=== PATIENT | female | born 1980 | race Caucasian/White ===

== ENCOUNTER 2021-05-11 16:13 | Emergency (ER) | payer OTHER, SELFPAY ==
--- NOTE | ~2021-05-11 | CT_ITS ---
EXAMINATION: CT abdomen pelvis w con DATE: 05/11/2021 17:33 INDICATION: Right upper quadrant abdominal pain with one month of nausea TECHNIQUE: Computed tomography (CT) of the abdomen and pelvis was performed with 100 mL Omnipaque-350 intravenous contrast. Automated exposure control and iterative reconstruction technique were employe d. The dose-length product was 343.80 mGy-cm. COMPARISON: None FINDINGS: Lung bases are clear. Heart size is normal. No pericardial or pleural effusion. 1.1 cm low-attenuatio n lesion in the right hepatic lobe near the confluence of the right hepatic vein and inferior vena ca va. Gallbladder, spleen, pancreas, bilateral adrenal glands and kidneys are normal. There are a few d iverticula along the sigmoid colon without adjacent inflammatory change to suggest diverticulitis. Sm all bowel and appendix are normal. Bladder, anteverted uterus and bilateral adnexa are normal. No brady e intraperitoneal gas or fluid. No pathologically enlarged abdominal or pelvic lymphadenopathy. Bones are unremarkable. IMPRESSION: 1. No acute intra-abdominal/pelvic process. 2. 1.1 cm hypoenhancing hepatic lesion which in the absence of known malignancy or liver disease is m ost likely benign with differential including focal nodular hyperplasia, hemangioma, hepatic adenoma and focal steatosis. Consider follow-up pre and postcontrast MRI for more definitive determination. Reviewed, dictated and finalized at location A. KER IMPRESSION: 1. No acute intra-abdominal/pelvic process. 2. 1.1 cm hypoenhancing hepatic lesion which in the absence of known malignancy or liver disease is most likely benign with differential including focal nodul ar hyperplasia, hemangioma, hepatic adenoma and focal steatosis. Consider follo w-up pre and postcontrast MRI for more definitive determination.
[2021-05-11 16:27] VITALS: BP 155/107; PULSE 78; RESP 16; TEMP 36.2; O2SAT 100
--- NOTE | 2021-05-11 16:47 | ED.ABDPAIN ---
HPI - Abdominal Pain General Chief Complaint: Abdominal Pain Stated Complaint: under rib pain, hot flashes Source: patient Mode of arrival: ambulatory Limitations: no limitations History of Present Illness HPI narrative: this is a 41-year-old female with chief complaint of abdominal pain in the epigastric area and localizing to the left lower quadrant with no nausea or vomiting patient says that she feels bloated with no dysuria no hematuria no flank pain no fever chills patient states that she has been having bouts of constipation, no diarrhea no chest pain or shortness of breath. Patient states that she notified her primary care physician and was advised to take [id number] PPIs as well as Tums, patient states that she gets minimal relief from that regimen. MD elicited complaint: abdominal pain Pertinent past history: none and constipation Onset (ago): day(s) Pain Consistency: intermittent Location: epigastric and LLQ Severity: mild Pain scale (0-10): 3 Quality: aching and fullness Related Data Home Medications Medication Instructions Recorded Confirmed amitriptyline 25 mg PO DAILY 05/11/21 05/11/21 Allergies Allergy/AdvReac Type Severity Reaction Status Date / Time No Known Allergies Allergy Verified 05/11/21 16:33 Review of Systems Review of Systems: All systems reviewed & are unremarkable except as noted in HPI and below PMFSH Past Medical History Medical History Irregular bleeding Family History Family History Other Hypertension Social History Social History Smoking status: Never smoker Alcohol intake: current Alcohol use details: socially Substance use: never Substance use type: does not use Additional occupation/education comments: [employer] Gender identity (if verbalized by the patient): Female Exam Const: General: no acute distress Orientation/consciousness: patient oriented x3 HENMT: Head: normal to inspection Eyes: Conjunctivae: conjunctivae normal Pupils: Equal, round and reactive pupils present Neck: Neck: normal visual inspection Chest: Chest palpation & inspection: normal inspection of the chest Resp: Effort & Inspection: normal respiratory effort Cardio: Rate: regular rate Rhythm: regular rhythm GI: GI Palp: Yes Soft to palpation and Yes Tenderness to palpation present (GI) ( Epigastric and left lower quadrant) Percussion: Yes normal to percussion : General: Yes no CVA tenderness Urinary Catheter: Urinary Catheter: patent and draining Back/Spine/Pelvis: Back: no CVA tenderness Skin: General skin exam: normal color Rashes: no rashes Neuro: General: patient oriented x3, moves all extremities and no meningeal signs Extrem: General: normal to inspection and no pedal edema Psych: Mental Status: mental status grossly normal Affect: normal affect Course Course Emergency Course: patient received GI cocktail, IV was placed and CT scan of abdomen pelvis performed with contrast and reviewed with patient as well as labs. CT scan reviewed with patient which showed a lesion on the liver that is likely benign but advised to see primary care physician to obtain an MRI for better evaluation. Vital Signs Vital signs: Vital Signs Temperature 36.2 C L 05/11/21 16:27 Pulse Rate 78 05/11/21 16:27 Respiratory Rate 16 05/11/21 16:27 Blood Pressure 155/107 H 05/11/21 16:27 Pulse Oximetry 100 05/11/21 16:27 Temperature 36.2 C L 05/11/21 16:27 Pulse Rate 78 05/11/21 16:27 Respiratory Rate 16 05/11/21 16:27 Blood Pressure 155/107 H 05/11/21 16:27 Pulse Oximetry 100 05/11/21 16:27 MDM - Abdominal Pain Lab Data Result diagrams: 05/11/21 16:52 05/11/21 16:52 Labs: Lab Results 05/11/21 05/11/21 05/11/21 Range/Units 16:
[2021-05-11] MEDS: MAG HYDROX/ALUMINUM HYD/SIMETH 30 ML, PHENobarb/HYOSCY/ATROPINE/SCOP 32.4 MG, LIDOCAINE... PO (16:53)
[2021-05-11 16:56] LABS: Basophils Absolute Auto 0.03 K/mm3 (0.00-0.10); Basophils Percent Auto 0.4 % (0.0-1.0); Eosinophils Absolute Auto 0.05 K/mm3 (0.02-0.50); Eosinophils Percent Auto 0.7 % (1.0-6.0); Hemoglobin 13.2 g/dL (12.0-15.0); Immature Granulocyte Absolute 0.02 K/mm3 (0.00-0.00); Immature Granulocyte Percent A 0.3 % (0.0-0.0); Lymphocytes Absolute Auto 2.19 K/mm3 (1.10-4.50); Mean Corpuscular HGB Conc 32.2 g/dL (32.0-36.0); Mean Corpuscular Hemoglobin 27.4 pg (27.0-31.0); Mean Corpuscular Volume 85.2 fL (78.0-102.0); Monocytes Absolute Auto 0.43 K/mm3 (0.10-0.90); Monocytes Percent Auto 5.9 % (2.0-11.0); Neutrophils Absolute Auto 4.6 K/mm3 (1.7-7.2); Neutrophils Percent Auto 62.7 % (50.0-70.0); Platelet Count Result 324 K/mm3 (150-420); Red Blood Count 4.81 M/mm3 (4.20-5.40); Red Cell Distribution Width 12.4 % (11.6-14.4); White Blood Count 7.3 K/mm3 (4.8-10.8)
[2021-05-11 17:04] LABS: Add Urine Microscopic? YES; Appearance Urine Clear (Clear); Bilirubin Urine Negative (Negative); Blood Urine 2+ (Negative); Color Urine Yellow (Yellow); Glucose Urine UA Negative (Negative); Ketones Urine Negative (Negative); Leukocyte Esterase Ur Trace (Negative); Nitrate Urine Negative (Negative); Protein Urine Negative (Negative); Specific Grav Ur 1.015 (1.010-1.020); Urobilinogen Urine 0.2 mg/dL (0.2-1.0)
[2021-05-11 17:06] LABS: Pregnancy On Board Control Positive; Urine Pregnancy Test Negative
[2021-05-11 17:10] LABS: Alanine Aminotransferase 19 U/L (14-59); Albumin Level 3.8 g/dL (3.4-5.0); Alkaline Phosphatase 55 U/L (46-116); Anion Gap 10 mmol/L (8-16); Aspartate Amino Transferase 19 U/L (15-37); Bilirubin,Total 0.3 mg/dL (0.00-1.00); Blood Urea Nitrogen 13 mg/dL (7-18); Calcium 9.4 mg/dL (8.5-10.1); Carbon Dioxide 27 mmol/L (21-32); Chloride 102 mmol/L (98-108); Estimated Glomerular Filt Rate > 60; Glucose 96 mg/dL (70-99); Lipase 112 U/L (73-393); Osmolality Calculated 288 mOsm/kg (285-295); Potassium 3.9 mmol/L (3.5-5.1); Sodium 139 mmol/L (136-145); Total Protein 7.5 g/dL (6.4-8.2)
[2021-05-11 17:11] LABS: Bacteria Urine Trace /hpf; Squamous Epithelial Cell Urine Few /hpf (Few); WBC Urine 0-3 /hpf (0-3)
[2021-05-11 18:25] VITALS: BP 129/104; PULSE 68; RESP 16; TEMP 36.8; O2SAT 98
== END 2021-05-11 18:35 | disposition home or self-care (01) ==
PROVIDERS: Emergency Provider Emergency Medicine; PCP Nurse Practitioner Adult Health
DX: R10.13 Epigastric pain (principal); K21.9 Gastro-esophageal reflux disease without esophagitis
CPT/HCPCS: 36415; 74177; 80053; 81001; 81025; 83690; 85025; 99284; A9270; Q9967

== ENCOUNTER 2021-11-01 08:38 | Emergency (ER) | payer OTHER, SELFPAY ==
--- NOTE | ~2021-11-01 | XR_ITS ---
EXAMINATION: XR knee LT min 4V DATE: 11/01/2021 09:17 INDICATION: Left knee injury and pain. TECHNIQUE: 4 views of left knee were obtained. COMPARISON: None. FINDINGS: Bone alignment is normal. No fracture. Joint spaces are well maintained. There is no knee j oint effusion. IMPRESSION: 1. Normal left knee. Reviewed, dictated and finalized at location A. IMPRESSION: 1. Normal left knee.
--- NOTE | ~2021-11-01 | XR_ITS ---
EXAMINATION: XR ankle LT min 3V DATE: 11/01/2021 09:16 INDICATION: Left ankle pain and swelling. Fall. TECHNIQUE: 4 views of left ankle were obtained. COMPARISON: None. FINDINGS: Bone alignment is normal. No fracture. Joint spaces are well maintained. There is ankle sof t tissue swelling. IMPRESSION: 1. No fracture. Reviewed, dictated and finalized at location A. IMPRESSION: 1. No fracture.
[2021-11-01 08:43] VITALS: BP 134/81; PULSE 106; RESP 15; TEMP 36.6; O2SAT 100
--- NOTE | 2021-11-01 08:55 | ED.LOWEXIN ---
HPI - Extremity Injury (Lower) General Chief Complaint: Extremity Injury, Lower Stated Complaint: fell off porch, left ankle injury Time Seen by Provider: 11/01/21 08:55 Source: patient Mode of arrival: ambulatory Limitations: no limitations History of Present Illness HPI Narrative: Patient is a 41-year-old female presenting to the emergency department for evaluation of a left ankle pain and swelling. Patient states that she missed stepped while walking in her garage, causing her to fall distance of approximately 6 to 8 inches and landed on her left foot. Patient heard a popping sensation with immediate pain and swelling in her left ankle. Patient has not been able to ambulate or bear weight on the extremity secondary to pain. She reports a tingling sensation but denies any significant numbness. She has full sensation in her toes and has been able to move her toes. She reports falling onto her knee but denies any knee pain, swelling, abrasion, or bruising. Patient denies head trauma or injury. No upper extremity injury or pain. No back pain. Related Data Home Medications Medication Instructions Recorded Confirmed amitriptyline 25 mg tablet 25 mg PO DAILY 05/11/21 09/13/21 Allergies Allergy/AdvReac Type Severity Reaction Status Date / Time No Known Allergies Allergy Verified 09/13/21 08:59 Review of Systems Review of Systems: CONSTITUTIONAL: Denies fever CARDIOVASCULAR: Denies chest pain RESPIRATORY: Denies cough or dyspnea. GASTROINTESTINAL: Denies abdominal pain SKIN: Denies rash MUSCULOSKELETAL: Denies back pain, reports left ankle pain NEUROLOGIC: Denies headache PMFSH Past Medical History Medical History Irregular bleeding Family History Family History Other Hypertension Social History Social History Smoking status: Never smoker Alcohol intake: current Alcohol use details: socially Substance use: never Substance use type: does not use Additional occupation/education comments: [employer] Gender identity (if verbalized by the patient): Female Exam Narrative: Nursing note and vitals reviewed. CONSTITUTIONAL: The patient appears well-developed and well-nourished. No distress. HEAD: Normocephalic and atraumatic. EYES: PERRL, EOMI, normal conjunctiva, anicteric EARS: External ears clear bilaterally MOUTH: OP clear, no erythema, exudates NECK: midline trachea, supple, FROM. CARDIOVASCULAR: Normal rate, regular rhythm, normal heart sounds and intact distal pulses. No murmurs, rubs, gallops. PULMONARY: Effort normal and breath sounds normal. No respiratory distress. The patient has no wheezes, rales, ronchi. ABDOMINAL: Soft. Nontender, nondistended. No palpable masses EXTREMITIES:: moving all extremities symmetrically. -RUE: No deformity. Normal ROM at shoulder, elbow, wrist, and hand. Sensation intact M/U/R. Pulse 2+. -LUE: No deformity. Normal ROM at shoulder, elbow, wrist, and hand., Sensation intact M/U/R. Pulse 2+ -RLE: No deformity. Normal ROM at hip, knee, ankle. Sensation intact distally. -LLE: Normal ROM at hip, knee. There is deformity at the left ankle with lateral malleoli are edema, tenderness. DP pulse 2+. Strength limited secondary to pain. Sensation intact distally. NEUROLOGY: The patient is alert and oriented to person, place, and time. CN II-XII Course Vital Signs Vital signs: Vital Signs Temperature 36.6 C 11/01/21 08:43 Pulse Rate 106 H 11/01/21 08:43 Respiratory Rate 15 11/01/21 08:43 Blood Pressure 134/81 11/01/21 08:43 Pulse Oximetry 100 11/01/21 08:43 Temperature 36.6 C 11/01/21 08:43 Pulse Rate 106 H 11/01/21 08:43 Respiratory Rate 15 11/01/21 08:43 Blood Pressure 134/81 11/01/21 08:43 Pulse Oximetry 100 11/01/21 08:43 MDM - Extremity Injury (Lower)
[2021-11-01 09:56] VITALS: BP 129/88; PULSE 90; RESP 16
== END 2021-11-01 09:58 | disposition home or self-care (01) ==
PROVIDERS: Emergency Provider Emergency Medicine; PCP Nurse Practitioner Adult Health
DX: S93.402A Sprain of unspecified ligament of left ankle, initial encounter (principal); S96.912A Strain of unspecified muscle and tendon at ankle and foot level, left foot, initial encounter; W10.9XXA Fall (on) (from) unspecified stairs and steps, initial encounter
CPT/HCPCS: 73564; 73610; 99284

== ENCOUNTER 2023-04-30 08:40 | Emergency (ER) | payer OTHER, SELFPAY ==
[2023-04-30 08:45] VITALS: BP 129/89; PULSE 89; RESP 16; TEMP 36.9; O2SAT 99
[2023-04-30] MEDS: TETANUS,DIPHTHERIA,AC PERTUSSIS ADULT (0.5 ML) BOOSTRIX (09:10)
--- NOTE | 2023-04-30 09:50 | ED.WOUNDLAC ---
HPI - Wound/Laceration General Chief Complaint: Wound/Laceration Stated Complaint: R index finger lac Time Seen by Provider: 04/30/23 09:01 Source: patient Mode of arrival: ambulatory Limitations: no limitations History of Present Illness HPI narrative: Patient is 43 y/o female who presents to the ED with c/o laceration to her R 2nd knuckle. Patient reports she was cleaning a glass drinking container this morning when the glass broke and she sustained a laceration to her right 2nd digit MCP joint. No active bleeding upon my evaluation. No other injuries. No numbness or tingling. Tetanus unknown. Related Data Allergies Allergy/AdvReac Type Severity Reaction Status Date / Time No Known Allergies Allergy Verified 04/30/23 09:12 Review of Systems Review of Systems: CONSTITUTIONAL: Denies fever, chills, or sweats. SKIN: See HPI. NEUROLOGIC: Denies headache, dizziness, numbness, or weakness. All systems reviewed & are unremarkable except as noted in HPI and below PMFSH Past Medical History Medical History Irregular bleeding Family History Family History Other Hypertension Social History Social History Smoking status: Never smoker Alcohol intake: current Alcohol use details: socially Substance use: never Substance use type: does not use Lack of Transportation: No Lack of Food: Never True Current Housing: I Have Housing Concerned About Future Housing: No Difficulty Paying Gas/Electric Bills: No Difficulty Paying for Meds: No Currently Unemployed: No Education: Associate Degree Difficulty w/ Childcare or Family Care: No Living arrangements: with family Occupation/Education: occupation Additional occupation/education comments: [employer] Gender identity (if verbalized by the patient): Female Exam Narrative: GENERAL: Well appearing, well-nourished, non-toxic, in no acute distress. HEAD: Normocephalic, atraumatic. RESPIRATORY: Airway patent, respirations nonlabored. CARDIOVASCULAR: Regular rate and rhythm without murmurs, rubs, or gallops. Radial pulses easily palpable MUSCULOSKELETAL: Moves all extremities. No gross deformities. No significant tenderness with range of motion of fingers. Sensation intact. Capillary refill intact. SKIN: Warm, dry, normal color. Approx 2 cm C-shaped laceration over R 2nd MCP joint. No significant active bleeding. Wound edges approximate well. NEURO: A&O X3. Speech clear. PSYCHIATRIC: Appropriate mood and affect. Normal interaction. Course Vital Signs Vital signs: Vital Signs Temperature 98.5 F 04/30/23 08:45 Pulse Rate 89 04/30/23 08:45 Respiratory Rate 16 04/30/23 08:45 Blood Pressure 129/89 04/30/23 08:45 Pulse Oximetry 99 04/30/23 08:45 Oxygen Delivery Room Air 04/30/23 08:45 Temperature 98.5 F 04/30/23 08:45 Pulse Rate 89 04/30/23 08:45 Respiratory Rate 16 04/30/23 08:45 Blood Pressure 129/89 04/30/23 08:45 Pulse Oximetry 99 04/30/23 08:45 Oxygen Delivery Room Air 04/30/23 08:45 Procedures Laceration Laceration 1: Date: 04/30/23 Time: 10:30 Site: hand Side (If applicable): right Size (cm): 2 Description: flap, irregular and clean Depth: simple, single layer Local Anesthetic: lidocaine 1% Amount of anesthesia used (mL): 5 Pre-repair: wound explored and irrigated ====== Skin Level ====== Skin layer closed with: nylon Size (cm): 5-0 Number of sutures: 6 Technique: simple, interrupted ====== Subcutaneous Layer ====== ====== Muscle Layer ====== ====== Tendon Layer ====== MDM - Wound/Laceration MDM Narrative Medical decision making narrative: Patient neurovascularly intact. No evidence
[2023-04-30 10:50] VITALS: BP 127/85; PULSE 80; RESP 14; O2SAT 100
== END 2023-04-30 10:51 | disposition home or self-care (01) ==
PROVIDERS: Emergency Provider Physician Assistant; PCP Emergency Medicine
DX: S61.411A Laceration without foreign body of right hand, initial encounter (principal); Z23 Encounter for immunization; W25.XXXA Contact with sharp glass, initial encounter; Y93.G1 Activity, food preparation and clean up
CPT/HCPCS: 12001; 90471; 90715; 99282

== ENCOUNTER 2023-12-27 07:32 | Outpatient (CLI) | payer OTHER, SELFPAY ==
[2023-12-27 07:46] LABS: Hematocrit 42.2 % (37.0-47.0); Hemoglobin 13.5 g/dL (12.0-15.0); Mean Corpuscular Hemoglobin 28.2 pg (26-34); Mean Corpuscular Volume 88.1 fl (80-100); Mean Platelet Volume 11.1 fl (7.4-10.4); Platelet Count Result 257 k/mm3 (150-375); Red Blood Count 4.79 M/mm3 (4.2-5.4); Red Cell Distribution Width 13.1 % (11.5-14.5); White Blood Count 5.7 K/mm3 (4.5-10.0)
[2023-12-27 09:31] LABS: Alanine Aminotransferase 9 U/L (6-35); Alkaline Phosphatase 64 U/L (38-126); Anion Gap 8 mmol/L (4-12); Aspartate Amino Transferase 20 U/L (14-36); Bilirubin,Total 0.5 mg/dL (0.2-1.3); Blood Urea Nitrogen 12 mg/dL (7-17); Calcium 9.4 mg/dL (8.4-10.2); Carbon Dioxide 29 mmol/L (22-30); Chloride 104 mmol/L (98-107); Cholesterol 225 mg/dL (0-200); Estimated Glomerular Filt Rate > 60; Glucose 92 mg/dL (65-110); HDL Direct 65 mg/dL; Lipase 99 U/L (23-300); Magnesium 1.8 mg/dL (1.6-2.3); Potassium 4.3 mmol/L (3.4-5.0); Sodium 141 mmol/L (137-145); Triglycerides 96 mg/dL (<150)
[2023-12-27 09:43] LABS: LDL Cholesterol Direct 124 mg/dL
== END 2023-12-27 07:33 | disposition home or self-care (01) ==
LOC: ANHLAB 07:33
PROVIDERS: PCP Nurse Practitioner Adult Health; Visit Provider Nurse Practitioner Adult Health
DX: R10.13 Epigastric pain (principal); Z13.9 Encounter for screening, unspecified
CPT/HCPCS: 36415; 80053; 80061; 82607; 83690; 83735; 84443; 85027

== ENCOUNTER 2024-10-05 09:16 | Emergency (ER) | payer OTHER, SELFPAY ==
--- NOTE | ~2024-10-05 | XR_ITS ---
EXAMINATION: XR ankle RT min 3V DATE: 10/05/2024 09:36 INDICATION: Lateral right ankle pain and swelling post fall down stairs TECHNIQUE: Anteroposterior, oblique, mortise, and lateral views of the right ankle were obtained. COMPARISON: None. FINDINGS: Alignment is normal. No fracture. Joint spaces are well maintained. No ankle joint effusion. Soft t issue swelling overlying the lateral malleolus. IMPRESSION: 1. No osseous abnormality Reviewed, dictated and finalized at location A. IMPRESSION: 1. No osseous abnormality
[2024-10-05 09:26] VITALS: BP 135/82; PULSE 75; RESP 14; TEMP 36.6; O2SAT 100
--- OUTSIDE RECORDS SUMMARY | 2024-10-05 09:29 | XMS_ITS | Patient Health Record ---
Author Organization [facility] Address [address] [place], [place] [id number] Care Team Providers Care Development Advisor Name Role Phone LISA BARRERA Unavailable [phone] Alena Dougherty Unavailable Unavailable Reason For Referral No Information Plan Of Treatment No Information Insurance Providers Payer Name Payer Address Payer Phone Subscriber Number Group Number Insured Name Patient Relationship to Insured Coverage Start Date Coverage End Date [employer] [address] [place], [place] [id number] [phone] [id number] SERGE ESCAMILLA Self - patient is the insured
--- OUTSIDE RECORDS SUMMARY | 2024-10-05 09:29 | XMS_ITS | Clinical Summary ---
Author Organization [facility] Address [address] [place] [id number] Care Team Providers Care Lockstitch Sleeve Setter Name Role Phone Unavailable Primary Care Provider Unavailabl e Social History Tobacco Use Types Packs/Day Years Used Date Smoking Tobacco: Never Assessed Comments Unknown Sex and Gender Information Value Date Recorded Sex Assigned at Not on file Legal Sex Female 8:36 PM CDT Gender Identity Not on file Sexual Orientation Not on file Plan of Treatment Health Maintenance Due Date Last Done Comments Cervical Cancer Screening Pa p Smear (Age 30 to 64) Every 3 Years 1982 Annual Physical 1985 Hepatitis C 02/12/2000 DTaP, Tdap and Td Vaccines ( 1 - Tdap) 2001 Hepatitis B Vaccines (1 of 3 - 19+ 3-dose series) 2001 HPV Vaccines (1 - 3-dose SCD M series) 2009 Cervical Cancer Screening Pa p with HPV Testing (Age 30 to 64) Every 5 Years 02/12/2012 Cervical Cancer Screening with HPV 02/12/2012 Mammogram Screening 2022 COVID-19 Vaccine ( - 2023-2 5 season) 2023 Meningococcal B Vaccine Aged Out No l onger eligible based on patient's age to complete this topic Meningococcal Vaccine Aged Out No rebekah marie eligible based on patient's age to complete this topic Pneumococcal Vaccine: Pediat rics (0 to 5 Years) and At-Risk Patients (6 to 49 Years) Aged Out No longer eligible b ased on patient's age to complete this topic RSV Immunizations Under 20 Months Aged Out No longer eligible based on patient's age to complete this topic
--- OUTSIDE RECORDS SUMMARY | 2024-10-05 09:29 | XMS_ITS | Clinical Summary ---
Author Organization [facility] Address [address] [place] [address] Care Team Providers Care Word Processor Technician Name Role Phone Jessica Turner MD Primary Care Provider [phone] Source Comments [facility],non-owned Affiliates and Associated Physician Practices is amultiple site organization consisting of ambulatory clinics and hospital sitesin [place], [place], [place] and [place]. This disclosure is being madepursuant to the Care Everywhere program and may not contain all information available regarding this patient. Last updated 17.[facility] Allergies No known active allergies Medications * Be aware that medications may not be up to date on this document. Alwaysverify current medications with the patient. vitamin-ferrous fumarate-folic acid (NATALCARE PLUS) 27-1 MG tablet Take 1 Tab by mouth once daily. Active ibuprofen (MOTRIN) 600 MG tablet Take 1 Tab by mouth every 6 hours as needed for Pain 45 Tab 0 11/21/2015 Active Immunizations Immunization Administration Dates Next Due MMR 11/21/2015 Rho D Immune Globulin 11/21/2015,10/28/2013 TDAP (7yrs+) 10/27/2013 Family History Medical History Relation Name Comments Tuberculosis Maternal Grandmother Hypertension Mother Cancer Other fob Stroke Paternal Grandfather Relation Name Status Comments Maternal Grandmother Mother Other Paternal Grandfather Social History Tobacco Use Types Packs/Day Years Used Date Smoking Tobacco: Never Alcohol Use Standard Drinks/Week Comments No 0 (1 standard drink = 0.6 oz pur e alcohol) Comments No Sex and Gender Information Value Date Recorded Sex Assigned at Not on file Legal Sex Female 1:06 PM CDT Gender Identity Not on file Sexual Orientation Not on file Last Filed Vital Signs Vital Sign Reading Time Taken Comments Blood Pressure 117/81 11/21/2015 12:04 PM CDT Pulse 83 11/20/2015 3:30 AM CDT Temperature 36.7 C (98.1 F) 11/21/2015 12:04 PM CDT Respiratory Rate 18 11/21/2015 12:04 PM CDT Oxygen Saturation 97% 11/20/2015 3:12 AM CDT Inhaled Oxygen Concentration - - Weight 79.4 kg (175 lb) 11/20/2015 12:29 AM CDT Height 170.2 cm (5' 7) 11/20/2015 12:29 AM CDT Body Mass Index 27.41 11/20/2015 12:29 AM CDT Plan of Treatment Health Maintenance Due Date Last Done Comments LIPID TESTING 1982 MAMMOGRAM 1982 HIV SCREENING 1997 HEPATITIS C SCREENING 02/07/2000 HEPATITIS B VACCINE (1 of 3 - 19+ 3-dose series) 2001 HPV VACCINE (1 - 3-dose SCDM series) 2009 DTAP/TDAP/TD VACCINES (2 - T d or Tdap) 10/28/2023 10/27/2013 COVID-19 VACCINE (1 - 2023-2 5 season) 2023 DEPRESSION SCREENING 03/04/2024 INFLUENZA VACCINE (#1) 2024 ZOSTER VACCINE (1 of 2) 02/12/2032 HIB VACCINE Aged Out No longer eligi ble based on patient's age to complete this topic MENINGOCOCCAL (Group B) VACC INE SHARED DECISION-MAKING Aged Out No longer eligibl e based on patient's age to complete this topic MENINGOCOCCAL GROUPS A/C/Y/W VACCINE Aged Out No longer eligible b ased on patient's age to complete this topic PNEUMOCOCCAL VACCINE Aged Out No long er eligible based on patient's age to complete this topic Insurance ANTHEM Advance Directives * Full Code (Latest Code Status on File) Date Activated Date Inactivated Comments 11/20/2015 1:07 AM 11/21/2015 2:20 PM * Full Code Date Activated Date Inactivated Comments 11/20/2015 12:22 AM 11/20/2015 1:07 AM * Full Code Date Activated Date Inactivated Comments 10/26/2013 8:00 PM 10/27/2013 7:09 PM Care Teams Word Processor Technician Relationship Specialty Start Date End Date Carmencita-Jsesica Gomez MD PCP - General Family Medicine 10/26/13
--- OUTSIDE RECORDS SUMMARY | 2024-10-05 09:29 | XMS_ITS | Clinical Summary ---
Author Organization [facility] Address [address] [place] [address] Phone Care Team Providers Care Executive Director Global Brand Marketing Name Role Phone Jessica Turner MD Primary Care Provider Unav ailable Allergies No known active allergies Medications venlafaxine SR 24 hour (EFFEXOR XR) 37.5 mg capsule Take 1 Cap by mouth daily. 30 Cap 1 3 Active SUMAtriptan (IMITREX) 50 mg tablet Take 1 Tab by mouth 1 time daily as needed for Headaches or Migraine. may repeat in 2 hours; max dose 200mg in 24 hours 9 Tab 2 3 Active Active Problems Problem Noted Date Diagnosed Date Anxiety Depression Migraine Comments Yes Immunizations Immunization Administration Dates Next Due Influenza Seasonal Unspecified Formulation IM Family History Medical History Relation Name Comments Healthy Father Hypertension Mother Cancer Neg Hx Diabetes Neg Hx Heart Failure Neg Hx Thyroid Disease Neg Hx Relation Name Status Comments Brother 2 Alive Father Alive Maternal Grandfather Maternal Grandmother Mother Alive Paternal Grandfather Paternal Grandmother Social History Tobacco Use Types Packs/Day Years Used Date Smoking Tobacco: Never Smokeless Tobacco: Never Alcohol Use Standard Drinks/Week Comments Yes 0 (1 standard drink = 0.6 oz pur e alcohol) 0-1drinks per week Comments Yes Sex and Gender Information Value Date Recorded Sex Assigned at Not on file Legal Sex Female 6:11 AM GEOLOGICAL AIDE Gender Identity Not on file Sexual Orientation Not on file Occupation Industry Job Start Date Job End Date Not on file Not on file Not on file Not on file Last Filed Vital Signs Vital Sign Reading Time Taken Comments Blood Pressure 112/78 02/19/2013 3:13 PM GEOLOGICAL AIDE Pulse 66 02/19/2013 3:13 PM GEOLOGICAL AIDE Temperature 36.6 C (97.8 F) 02/19/2013 3:13 PM GEOLOGICAL AIDE Respiratory Rate 12 02/19/2013 3:13 PM GEOLOGICAL AIDE Oxygen Saturation 100% 11/27/2012 3:07 PM CDT Inhaled Oxygen Concentration - - Weight 67.8 kg (149 lb 6.4 oz) 02/19/2013 3:13 PM GEOLOGICAL AIDE Height 170.2 cm (5' 7) 02/19/2013 3:13 PM GEOLOGICAL AIDE Body Mass Index 23.4 02/19/2013 3:13 PM GEOLOGICAL AIDE Plan of Treatment Health Maintenance Due Date Last Done Comments HPV VACCINES (1 - 3-dose series) 1997 DTAP/TDAP/TD VACCINES (1 - Tdap) 2001 HEPATITIS B VACCINES (1 of 3 - 19+ 3-dose series) 02/01 HPV/Cotest (21-29) 2003 HPV/Cotest (30-65) 02/12/2012 CERVICAL CANCER SCREENING 12/02/2013 PAP SMEAR 12/02/2013 12/02/2010 BREAST CANCER SCREENING 2022 INFLUENZA VACCINE (#1) 2024 12/02/2012 RSV VACCINE (60+ or ) (1 - 1-dose 75+ series) [address] [place] [address] [facility] BLUE ACCESS CHOICE Care Teams Executive Director Global Brand Marketing Relationship Specialty Start Date End Date Carmencita-Jessica Gomez MD PCP - General Family Practice 12/27/11
--- OUTSIDE RECORDS SUMMARY | 2024-10-05 09:29 | XMS_ITS | Clinical Summary ---
Author Organization [facility] Care Team Providers Care Table Machine Operator Name Role Phone Unavailable Primary Care Provider Unavailabl e Social History Tobacco Use Types Packs/Day Years Used Date Smoking Tobacco: Never Assessed Comments Unknown Sex and Gender Information Value Date Recorded Sex Assigned at Not on file Legal Sex Female 11:51 AM IT APPLICATION ARCHITECT Gender Identity Not on file Sexual Orientation Not on file Plan of Treatment Health Maintenance Due Date Last Done Comments Hepatitis C Virus (HCV) Screening 1982 Human Papillomavirus (HPV) Immunization (1 - 3-dose series) 1997 Hepatitis B Immunization (1 of 3 - 19+ 3-dose series) 2001 Pap Smear 2003 Cervical Cancer Screening (CCS) 02/12/2012 HPV/Cotest 02/12/2012 SARS-COV-2 Immunization ( season) 2023 01/13/2021, 04/08/2020, 03/11/2020 Influenza Immunization (#1) 11/02/202402/01, 01/01/2019, 01/01/2016 Respiratory Syncytial Virus (RSV) Immunization (Adult) (1 - 1-dose 75+ series) 2057 DTaP/Tdap/Td Immunization Discontinued 11/11/2015 TdaP Immunization Completed 11/11/2015 Meningococcal Immunization (ACWY) Aged Out No longer eligible based on patient's age to complete this topic Pneumococcal Immunization Combined Aged Out No longer eligible based on patient's age to complete this topic Rotavirus Immunization Aged Out No lo nger eligible based on patient's age to complete this topic
--- NOTE | 2024-10-05 09:33 | ED_ITS ---
HPI - Extremity Injury (Lower) General Chief Complaint: Extremity Injury, Lower Stated Complaint: fall Time Seen by Provider: 10/05/24 09:33 Source: patient Mode of arrival: ambulatory Limitations: no limitations History of Present Illness HPI Narrative: 44 y/o female presented for c/o right ankle pain following injury today. States she missed a step and fell down a few stairs, and heard a pop in the ankle. Endorses swelling and bruising, and pain with walking. Has not taken anything for pain. Denies deformity, numbness, tingling or weakness. Related Data Allergies Allergy/AdvReac Type Severity Reaction Status Date / Time No Known Allergies Allergy Verified 10/05/24 09:28 Review of Systems Review of Systems: CONSTITUTIONAL: Denies body aches, fever, chills EYES: Denies visual changes ENT: Denies rhinorrhea, congestion CARDIOVASCULAR: Denies chest pain, palpitations, or edema. RESPIRATORY: Denies cough or dyspnea. SKIN: Denies rash, itching, or wounds. MUSCULOSKELETAL: reports right ankle pain. NEUROLOGIC: Denies numbness, tingling, or weakness. All systems reviewed & are unremarkable except as noted in HPI and below PMFSH Past Medical History Medical History (Updated 10/05/24 @ 09:53 by Ivana Brock APRN) Headache Irregular bleeding Family History Family History Father Hypertension Social History Social History (Updated 12/16/23 @ 07:07 by Lala Resterpo MA) Smoking status: Never smoker Alcohol intake: current Alcohol use details: socially 1-4 a week Substance use: never Substance use type: does not use Do You Feel Safe in your Home?: Yes Lack of Transportation: No Lack of Food: Never True Current Housing: I Have Housing Concerned About Future Housing: No Difficulty Paying Gas/Electric Bills: No Difficulty Paying for Meds: No Currently Unemployed: No Education: Associate Degree Difficulty w/ Childcare or Family Care: No Living arrangements: with family Occupation/Education: occupation 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 Please see nursing chart for further information. There is no relevant family history pertinent to the presenting complaint Exam Narrative: GENERAL: Well-appearing CHEST: Speaks in full sentences. No respiratory distress. HEART: Regular rate and rhythm. Normal and equal peripheral pulses. EXTREMITIES: Right lateral ankle swelling noted, tender with palpation to anterior/posterior aspects of malleolus. Decreased ROM due to pain. Right foot has normal strength and sensation, No open wounds. Ambulates with guarding. pulse palpable and equal bilaterally, skin warm, dry, pink. Capillary refill less than 3 seconds. SKIN: Warm, dry, no rash. NEURO: Alert and oriented x3. PSYCH: Normal mood and affect Course Course Emergency Course: Patient is aware of diagnosis, understands and agrees to treatment plan. Anticipatory guidance given. Patient agrees to follow-up as directed and is aware of reasons to seek care at the emergency department. Portions of this record may have been created with voice recognition software Level of Care: Express Care Visit Vital Signs Vital signs: Vital Signs Temperature 97.8 F 10/05/24 09:26 Pulse Rate 75 10/05/24 09:26 Respiratory Rate 14 10/05/24 09:26 Blood Pressure 135/82 10/05/24 09:26 Pulse Oximetry 100 10/05/24 09:26 Oxygen Delivery Room Air 10/05/24 09:26 Temperature 97.8 F 10/05/24 09:26 Pulse Rate 75 10/05/24 09:26 Respiratory Rate 14 10/05/24 09:26 Blood Pressure 135/82 10/05/24 09:26 Pulse Oximetry 100 10/05/24 09:26 Oxygen Delivery Room Air 10/05/24 09:26 Reviewed MDM - Extremity Injury (Lower) MDM Narrative Medical decision making narrative: Discussed physical exam findings and Xray. CARLOS applied. Advised supportive measures and signs/symptoms to go to the ER. Pt is appropriate for outpt treatment and f/u. Differential Diagnosis Differential diagnosis: Likely ankle sprain and strain and ankle fracture Discharge Plan Discharge Clinical Impression: Ankle sprain and strain Patient Disposition: Home Condition: Stable Instructions: Ankle Sprain (ED) Additional Instructions: Rest and elevate the right leg; bear weight as tolerated Apply ice 15-20 minute intervals several times a day Keep it wrapped with CARLOS or use a soft ankle splint Motrin and Tylenol every 8 hours as needed Follow up with your primary care provider scheduled Go to the ER for worsening symptoms or concerns Patient Language: Kinyarwanda Prescriptions: New ibuprofen 800 mg tablet 800 mg PO TID PRN (Reason: pain) Qty: 10 0RF No Action tretinoin 0.025 % cream 1 applic topical QHS Qty: 45 1RF amitriptyline 25 mg tablet 25 mg PO DAILY Qty: 90 3RF Rx Instructions: NEEDS APPOINTMENT FOR FURTHER REFILLS Nurtec ODT 75 mg tablet,disintegrating See Rx Instructions .ROUTE .COMPLEX Qty: 8 3RF Dose Instruction: TAKE 1 TABLET BY MOUTH ONCE NEEDED FOR MIGRAINE HEADACHE A SINGLE DOSE Rx Instructions: TAKE 1 TABLET BY MOUTH ONCE NEEDED FOR MIGRAINE HEADACHE A SINGLE DOSE lisdexamfetamine [Vyvanse] 40 mg capsule 40 mg PO QAM Qty: 30 0RF bupropion HCl [Wellbutrin XL] 150 mg tablet extended release 24 hr 150 mg PO QAM Qty: 90 1RF Follow-up/Referrals: Alena Dougherty APRN [Primary Care Provider] - Time of Disposition: 09:53
== END 2024-10-05 10:01 | disposition home or self-care (01) ==
PROVIDERS: Emergency Provider Nurse Practitioner Family; PCP Nurse Practitioner Adult Health
DX: S93.401A Sprain of unspecified ligament of right ankle, initial encounter (principal); S96.911A Strain of unspecified muscle and tendon at ankle and foot level, right foot, initial encounter; W10.9XXA Fall (on) (from) unspecified stairs and steps, initial encounter
CPT/HCPCS: 73610; 99213; G0463

== ENCOUNTER 2024-12-14 17:29 | Emergency (ER) | payer OTHER, SELFPAY ==
--- NOTE | ~2024-12-14 | XR_ITS ---
XR knee LT min 4V INDICATION: knee buckled . COMPARISON: None. FINDINGS: Frontal, lateral and oblique views of the left knee demonstrate no acute fracture or dislocation. There is no joint effusion. IMPRESSION: Radiographic examination of the left knee demonstrates no acute fracture or dislocation. Reviewed, dictated and finalized at location S. IMPRESSION: Radiographic examination of the left knee demonstrates no acute fracture or dis location.
[2024-12-14 17:30] VITALS: BP 128/90; PULSE 75; RESP 16; TEMP 36.6; O2SAT 100
--- OUTSIDE RECORDS SUMMARY | 2024-12-14 17:31 | XMS_ITS | Clinical Summary ---
Author Organization [facility] Address [address] [place] [id number] Care Team Providers Care Trailer Rental Clerk Name Role Phone Unavailable Primary Care Provider [...] HPV 02/12/2012 Mammogram Screening 2022 COVID-19 Vaccine (2023-2 5 season) 2024 Influenza Adult (#1) 2024 Meningococcal B Vaccine Aged Out No l [...]
--- OUTSIDE RECORDS SUMMARY | 2024-12-14 17:31 | XMS_ITS | Clinical Summary ---
Author Organization [facility] Address [address] [place] [address] Phone Care Team Providers Care Chute Builder Name Role Phone Jessica Turner MD Primary [...] on file Legal Sex Female 6:11 AM DISABILITY REPRESENTATIVE Gender Identity Not on file Sexual Orientation Not on file Occupation Industry Job Start Date Job End Date Not on file Not on file Not on file Not on file Last Filed Vital Signs Vital Sign Reading Time Taken Comments Blood Pressure 112/78 02/19/2013 3:13 PM DISABILITY REPRESENTATIVE Pulse 66 02/19/2013 3:13 PM DISABILITY REPRESENTATIVE Temperature 36.6 C (97.8 F) 02/19/2013 3:13 PM DISABILITY REPRESENTATIVE Respiratory Rate 12 02/19/2013 3:13 PM DISABILITY REPRESENTATIVE Oxygen Saturation 100% 11/27/2012 3:07 PM CDT Inhaled Oxygen Concentration - - Weight 67.8 kg (149 lb 6.4 oz) 02/19/2013 3:13 P M DISABILITY REPRESENTATIVE Height 170.2 cm (5' 7) 02/19/2013 3:13 PM DISABILITY REPRESENTATIVE Body Mass Index 23.4 02/19/2013 3:13 PM DISABILITY REPRESENTATIVE Plan of Treatment Health Maintenance Due Date Last Done Comments DTAP/TDAP/TD VACCINES (1 - Tdap) 2001 HEPATITIS B VACCINES (1 of 3 - 19+ 3-dose series) 02/01 HPV/Cotest (21-29) 2003 HPV VACCINES (1 - 3-dose SCDM series) 2009 HPV/Cotest (30-65) 02/12/2012 CERVICAL CANCER SCREENING 12/02/2013 PAP SMEAR 12/02/2013 12/02/2010 BREAST CANCER SCREENING 2022 INFLUENZA VACCINE (#1) 2024 12/02/2012 RSV VACCINE (60+ or ) (1 - 1-dose 75+ series) [address] [place] [id number] [address] BLUE ACCESS CHOICE Care Teams Chute Builder Relationship Specialty Start Date End Date Carmencita-Jessica Gomez MD PCP - General Family Practice 12/27/11
--- OUTSIDE RECORDS SUMMARY | 2024-12-14 17:31 | XMS_ITS | Clinical Summary ---
Author Organization [facility] Care Team Providers Care Occupational Health Physician Name Role Phone Unavailable Primary Care Provider Unavailabl e Social History Tobacco Use Types Packs/Day Years Used Date Smoking Tobacco: Never Assessed Comments Unknown Sex and Gender Information Value Date Recorded Sex Assigned at Not on file Legal Sex Female 11:51 AM SENIOR SOURCING MANAGER Gender Identity Not on file Sexual Orientation Not on file Plan of Treatment Health Maintenance Due Date Last Done Comments Hepatitis C Virus (HCV) Screening 1982 Hepatitis B Immunization (1 of 3 - 19+ 3-dose series) 2001 Pap Smear 2003 Human Papillomavirus (HPV) Immunization (1 - 3-dose SCDM series) 2009 Cervical Cancer Screening (CCS) 02/12/2012 HPV/Cotest 02/12/2012 Influenza Immunization (#1) 11/02/202402/01, 01/01/2019, 01/01/2016 SARS-COV-2 Immunization ( season) 2024 01/13/2021, 04/08/2020, 03/11/2020 Respiratory Syncytial Virus (RSV) Immunization (Adult) (1 [...]
--- OUTSIDE RECORDS SUMMARY | 2024-12-14 17:31 | XMS_ITS | Patient Health Record ---
Author Organization [facility] Address [address] [place], [place] [address] Care Team Providers Care Hardwood Finisher Name Role Phone LISA BARRERA Unavailable [phone] Alena Dougherty Unavailable Unavailable Reason For Referral No Information Plan Of Treatment No Information Insurance Providers Payer Name Payer Address Payer Phone Subscriber Number Group Number Insured Name Patient Relationship to Insured Coverage Start Date Coverage End Date [employer] [address] [place], [place] [phone] [id number] SERGE ESCAMILLA Self - patient is the insured
--- NOTE | 2024-12-14 17:36 | ED_ITS ---
HPI - Extremity Injury (Lower) General Chief Complaint: Extremity Injury, Lower Stated Complaint: left knee pain Time Seen by Provider: 12/14/24 17:36 Source: patient Mode of arrival: ambulatory Limitations: no limitations History of Present Illness HPI Narrative: Patient is a 44-year-old female with a left knee pain for the past week. She was walking down bleachers and sustained a left knee pain. MD complaint: knee injury (Left) Onset (ago): week(s) (1) Type of Injury: hyperextension and hyperflexion Place: street/outdoors Severity: moderate Severity scale (1-10): 5 Relieving factors: immobilization Exacerbating factors: weight bearing, movement and palpation Context: walking Associated symptoms: swelling, tingling and able to partially bear weight Other symptoms: none Treatments prior to arrival: cold therapy Related Data Allergies Allergy/AdvReac Type Severity Reaction Status Date / Time No Known Allergies Allergy Verified 12/14/24 17:34 Review of Systems Review of Systems: All systems reviewed & are unremarkable except as noted in HPI and below Constitutional: Constitutional: Reports no additional constitutional complaints Eyes: Eyes: Reports no additional eye complaints ENT: Reports system reviewed and no additional complaints, except as documented Cardiovascular: Cardiovascular: Reports no additional cardiovascular complaints Respiratory: Respiratory: Reports no additional respiratory complaints Gastrointestinal: Gastrointestinal: Reports no additional gastrointestinal complaints Genitourinary: Genitourinary: Reports no additional female genitourinary complaints Musculoskeletal: Musculoskeletal: Reports no additional musculoskeletal complaints Integumentary/Breasts: Skin/Breast: Reports system reviewed and no additional complaints, except as docu Neurologic: Reports system reviewed and no additional complaints, except as documented Psychiatric: Psychiatric: Reports no additional psychiatric complaints Endocrine: Endocrine: Reports no additional endocrine complaints Hematologic/Lymphatic: Hematologic/Lymphatic: Reports no additional hematologic/lymphatic complaints Allergic/Immunologic: Allergic/Immunologic: Reports no additional allergic/immunologic complaints PMFSH Past Medical History Medical History Headache Irregular bleeding Family History Family History Father Hypertension Social History Social History Smoking status: Never smoker Alcohol intake: current Alcohol use details: socially 1-4 a week Substance use: never Substance use type: does not use Do You Feel Safe in your Home?: Yes Lack of Transportation: No Lack of Food: Never True Current Housing: I Have Housing Concerned About Future Housing: No Difficulty Paying Gas/Electric Bills: No Difficulty Paying for Meds: No Currently Unemployed: No Education: Associate Degree Difficulty w/ Childcare or Family Care: No Living arrangements: with family Occupation/Education: occupation 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 Gender identity (if verbalized by the patient): Female Agree to blood products: Yes Exam Const: General: healthy appearing Nutritional Appearance: well nourished Orientation/consciousness: patient oriented x3 HENMT: Head: normal to inspection Ears: external ears normal Face/Nose/Sinus: Normal external nose present Eyes: Conjunctivae: conjunctivae normal Pupils: Equal, round and reactive pupils present EOM: EOMs intact bilaterally Neck: Neck: normal visual inspection Chest: Chest palpation & inspection: normal inspection of the chest Resp: Effort & Inspection: normal respiratory effort and not labored Auscultation: clear to auscultation bilaterally and no crackles Cardio: Rate: regular rate Rhythm: regular rhythm Heart sounds: no murmurs GI: Inspection: non-distended GI Palp: Yes Soft to palpation and No Tenderness to palpation present (GI) Auscultation: normal bowel sounds : General: Yes bladder normal to palpation Back/Spine/Pelvis: Back: no CVA tenderness Skin: General skin exam: normal color Rashes: no rashes Wounds: no wounds Neuro: General: patient oriented x3, moves all extremities and no meningeal signs Extrem: General: abnormal to inspection, no clubbing, cyanosis or edema and no pedal edema Other: Left knee is tender to palpation and equivocal for meniscal lateral abnormality Psych: Mental Status: mental status grossly normal Affect: normal affect Attitude: cooperative Course Vital Signs Vital signs: Vital Signs Temperature 36.6 C 12/14/24 17:30 Pulse Rate 75 12/14/24 17:30 Respiratory Rate 16 12/14/24 17:30 Blood Pressure 128/90 12/14/24 17:30 Pulse Oximetry 100 12/14/24 17:30 Oxygen Delivery Room Air 12/14/24 17:30 Temperature 36.7 C 12/14/24 19:03 Pulse Rate 78 12/14/24 19:03 Respiratory Rate 20 12/14/24 19:03 Blood Pressure 124/89 12/14/24 19:03 Pulse Oximetry 100 12/14/24 19:03 Oxygen Delivery Room Air 12/14/24 19:03 MDM - Extremity Injury (Lower) MDM Narrative Medical decision making narrative: Patient is a 44-year-old female with a left knee injury after walking down bleachers. X-ray. Imaging Data Attestation: I personally reviewed and interpreted this imaging study as follows: Radiologist's impression: X-ray left knee is negative for acute process Discharge Plan Discharge Clinical Impression: Derangement of knee Qualifiers: Laterality: left Qualified Code(s): M23.92 - Unspecified internal derangement of left knee Patient Disposition: Home Condition: Stable Instructions: Knee Pain (ED) Additional Instructions: Please follow-up with the primary doctor in the next week. You will need an MRI of this knee if continued problems over the next couple of weeks. Rest, ice, elevation and compression with Jose bandage. Patient Language: Irish Prescriptions: New tramadol 50 mg tablet 50 mg PO Q8H PRN (Reason: pain) Qty: 20 0RF Rx Instructions: 1-2 tabs per dose No Action ibuprofen 800 mg tablet 800 mg PO TID PRN (Reason: pain) Qty: 10 0RF Qulipta 60 mg tablet 60 mg PO DAILY Qty: 30 1RF tretinoin 0.025 % cream 1 applic topical QHS Qty: 45 1RF Nurtec ODT 75 mg tablet,disintegrating See Rx Instructions .ROUTE .COMPLEX Qty: 8 3RF Dose Instruction: TAKE 1 TABLET BY MOUTH ONCE NEEDED FOR MIGRAINE HEADACHE A SINGLE DOSE Rx Instructions: TAKE 1 TABLET BY MOUTH ONCE NEEDED FOR MIGRAINE HEADACHE A SINGLE DOSE bupropion HCl [Wellbutrin XL] 150 mg tablet extended release 24 hr 150 mg PO QAM Qty: 90 1RF lisdexamfetamine [Vyvanse] 40 mg capsule 40 mg PO QAM Qty: 30 0RF Follow-up/Referrals: Alena Dougherty APRN [Primary Care Provider, Family Practice] Time of Disposition: 18:49
[2024-12-14] MEDS: KETOROLAC (*BKC) 60 MG/2 ML VIAL IM (18:06)
[2024-12-14 18:28] VITALS: BP 129/88; PULSE 69; RESP 16; TEMP 36.5; O2SAT 100
[2024-12-14 19:03] VITALS: BP 124/89; PULSE 78; RESP 20; TEMP 36.7; O2SAT 100
== END 2024-12-14 19:06 | disposition home or self-care (01) ==
PROVIDERS: Emergency Provider Emergency Medicine; PCP Nurse Practitioner Adult Health
DX: M23.92 Unspecified internal derangement of left knee (principal)
CPT/HCPCS: 73564; 96372; 99283; J1885; J7512

== ENCOUNTER 2025-02-03 08:17 | Outpatient (CLI) | payer OTHER, SELFPAY ==
--- NOTE | ~2025-02-03 | MM_ITS ---
EXAMINATION: MM screening [facility] BI w [place] HISTORY: Screening. TECHNIQUE: Craniocaudal and mediolateral oblique 3-D tomosynthesis images were obtained and synthetic 2-D images were generated. CAD analysis was submitted and interpreted. COMPARISON: None available. BREAST PARENCHYMAL COMPOSITION: Dense: The breasts are heterogeneously dense FINDINGS: No suspicious masses are seen. There are no suspicious calcifications. No unexplained architectural distortion is seen. There are no skin or nipple abnormalities identified. There is no adenopathy seen on the images submitted. IMPRESSION: No mammographic evidence to suggest malignancy is seen. The patient may return to screening mammography as per ACR guidelines. BI-RADS 1 - Negative. Reviewed, dictated and finalized at location B. ISTRY RESEARCH ASSISTANT
--- OUTSIDE RECORDS SUMMARY | 2025-02-03 08:27 | XMS_ITS | Clinical Summary ---
Author Organization [facility] [employer] Address [address] [place] [address] Care Team Providers Care Pizza Hut Assistant Name Role Phone Jessica Turner MD Primary Care Provider [phone] Source Comments [facility],non-owned Affiliates and Associated Physician Practices is amultiple site organization consisting of ambulatory clinics and hospital sitesin [place], [place], [place] and [place]. This disclosure is being madepursuant to the Care Everywhere program and may not contain all information available regarding this patient. Last updated 17.[facility] [employer] Allergies No known active allergies Medications * [...] - T d or Tdap) 10/28/2023 10/27/2013 DEPRESSION SCREENING 03/04/2024 COVID-19 VACCINE (1 - 2024-2 6 season) 2024 INFLUENZA VACCINE (#1) 2024 ZOSTER VACCINE (1 [...] 8:00 PM 10/27/2013 7:09 PM Care Teams Pizza Hut Assistant Relationship Specialty Start Date End Date Carmencita-Jessica Gomez MD PCP - General Family Medicine 10/26/13
--- OUTSIDE RECORDS SUMMARY | 2025-02-03 08:27 | XMS_ITS | Clinical Summary ---
Author Organization [facility] Address [address] [place] [address] Phone Care Team Providers Care Daycare Manager Name Role Phone Jessica Turner MD Primary [...] on file Legal Sex Female 6:11 AM PEDIATRICIAN MANAGING PARTNER Gender Identity Not on file Sexual Orientation Not on file Occupation Industry Job Start Date Job End Date Not on file Not on file Not on file Not on file Last Filed Vital Signs Vital Sign Reading Time Taken Comments Blood Pressure 112/78 02/19/2013 3:13 PM PEDIATRICIAN MANAGING PARTNER Pulse 66 02/19/2013 3:13 PM PEDIATRICIAN MANAGING PARTNER Temperature 36.6 C (97.8 F) 02/19/2013 3:13 PM PEDIATRICIAN MANAGING PARTNER Respiratory Rate 12 02/19/2013 3:13 PM PEDIATRICIAN MANAGING PARTNER Oxygen Saturation 100% 11/27/2012 3:07 PM CDT Inhaled Oxygen Concentration - - Weight 67.8 kg (149 lb 6.4 oz) 02/19/2013 3:13 P M PEDIATRICIAN MANAGING PARTNER Height 170.2 cm (5' 7) 02/19/2013 3:13 PM PEDIATRICIAN MANAGING PARTNER Body Mass Index 23.4 02/19/2013 3:13 PM PEDIATRICIAN MANAGING PARTNER Plan of Treatment Health Maintenance Due Date [...] (1 - 1-dose 75+ series) 2057 Insurance [place], [place] [id number] [place] [address] BLUE ACCESS CHOICE Care Teams Daycare Manager Relationship Specialty Start Date End Date Meyr-Jessica Gomez MD PCP - General Family Practice 12/27/11
--- OUTSIDE RECORDS SUMMARY | 2025-02-03 08:27 | XMS_ITS | Clinical Summary ---
Author Organization [facility] Address [address] [place] [id number] Care Team Providers Care Linux Systems Engineer Name Role Phone Unavailable Primary Care Provider [...] HPV 02/12/2012 Mammogram Screening 2022 COVID-19 Vaccine (2024-2 6 season) 2024 Influenza Adult (#1) 2024 Hepatitis A Vaccines Aged Out No long er eligible based on patient's age to complete this topic Meningococcal B Vaccine Aged Out No l [...]
--- OUTSIDE RECORDS SUMMARY | 2025-02-03 08:27 | XMS_ITS | Clinical Summary ---
Author Organization [facility] Care Team Providers Care Steam Clothes Press Operator Name Role Phone Unavailable Primary Care Provider Unavailabl e Social History Tobacco Use Types Packs/Day Years Used Date Smoking Tobacco: Never Assessed Comments Unknown Sex and Gender Information Value Date Recorded Sex Assigned at Not on file Legal Sex Female 11:51 AM BUSINESS AREA MANAGER Gender Identity Not on file Sexual [...]
== END 2025-02-03 08:18 | disposition home or self-care (01) ==
PROVIDERS: PCP Nurse Practitioner Adult Health; Visit Provider Nurse Practitioner Adult Health
DX: Z12.31 Encounter for screening mammogram for malignant neoplasm of breast (principal)
CPT/HCPCS: 77063; 77067